=== PATIENT | male | born 2000 | race Caucasian/White ===

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

== ENCOUNTER → 2023-04-05 | Outpatient (CLI) | payer SELFPAY | LOC: M LAB 16:47 | PROVIDERS: ATTEND Physician Assistant | DX: S61.210A Laceration without foreign body of right index finger without damage to nail, initial encounter (principal) ==